=== PATIENT | male | born 1950 | race Caucasian/White ===

== ENCOUNTER 2017-01-29 18:19 | Inpatient (IN) | payer MEDICARE, OTHER ==
[~2017-01-29] VITALS: Ht 175.3 cm; Wt 77.1 kg
[2017-01-29] MEDS ORDERED: ACETAMINOPHEN 325 MG TABLET PO PRN (19:30)
[2017-01-29] MEDS ORDERED: MAG HYDROX/AL HYDROX/SIMETH 30 ML UDC PO PRN (19:30)
[2017-01-29] MEDS ORDERED: MAGNESIUM HYDROXIDE 30 ML UDC PO PRN (19:30)
[2017-01-29] MEDS ORDERED: LITH600C PO (19:52)
[2017-01-29] MEDS ORDERED: PALI6TAB PO (19:52)
[2017-01-29] MEDS ORDERED: OLAN20TA3 PO (19:52)
[2017-01-29] MEDS ORDERED: FLUT1DIS INH (19:52)
[2017-01-29] MEDS ORDERED: RANI150T8 PO (19:52)
[2017-01-29 20:00] VITALS: BP 105/60
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
[2017-01-30 07:17] LABS: BASOPHILS % (AUTO) 0.2 % (0.0-2.0); HEMATOCRIT 44 % (39-51); HEMOGLOBIN 15.1 g/dL (13.5-17.5); LYMPHOCYTES # (AUTO) 1.3 /CMM (0.8-4.8); MEAN CORPUSCULAR HEMOGLOBIN 32 PG (26.0-33.0); MEAN CORPUSCULAR HGB CONC 35 g/dl (31.0-36.0); MEAN CORPUSCULAR VOLUME 94 fL (80-96); MONOCYTES # (AUTO) 0.4 /CMM (0.1-1.30); MONOCYTES % (AUTO) 6.3 % (2.0-12.0); NEUTROPHILS % (AUTO) 74.5 % (43.0-81.0); PLATELET COUNT (AUTO) 236 /CMM (150-450); RDW COEFFICIENT OF VARIATION 13.1 (11.5-15.0); RED BLOOD CELL COUNT(AUTO) 4.66 MIL/uL (4.5-6.0); WHITE BLOOD COUNT (AUTO) 6.7 K/uL (4.3-11.0)
[2017-01-30 07:43] LABS: ALBUMIN 3.6 g/dL (3.4-5.0); BILIRUBIN,TOTAL 0.6 mg/dL (0.2-1.0); CALCIUM, SERUM 8.8 mg/dL (8.5-10.1); CREATININE 0.7 mg/dL (0.6-1.3); POTASSIUM 3.9 mmol/L (3.5-5.1); TOTAL PROTEIN, SERUM 6.9 g/dL (6.4-8.2)
[2017-01-30 08:00] VITALS: BP 130/76
[2017-01-30] MEDS: FLUTICASONE/VILANTEROL 1 EACH BLST.W.DEV IH SCH (09:09)
[2017-01-30] MEDS: FAMOTIDINE (20 MG) 20 MG TABLET PO SCH (09:10)
[2017-01-30] MEDS: LITHIUM CARBONATE (300 MG CAP) 300 MG CAPSULE PO SCH ×2 (12:21→21:22)
[2017-01-30] MEDS: OLANZAPINE 5 MG TABLET PO SCH ×2 (12:21→16:34)
[2017-01-30 15:39] VITALS: BP 112/68
[2017-01-30] MEDS: LORAZEPAM 0.5 MG TABLET PO PRN (16:34)
[2017-01-30 20:15] VITALS: BP 112/67
[2017-01-30] MEDS: risperiDONE 1 MG TABLET PO SCH (21:22)
[2017-01-31] MEDS: LORAZEPAM 0.5 MG TABLET PO PRN ×2 (05:48→13:42)
[2017-01-31 08:10] VITALS: BP 134/66
[2017-01-31] MEDS: risperiDONE 1 MG TABLET PO SCH ×2 (08:10→21:22)
[2017-01-31] MEDS: LITHIUM CARBONATE (300 MG CAP) 300 MG CAPSULE PO SCH ×2 (08:11→21:22)
[2017-01-31] MEDS: FAMOTIDINE (20 MG) 20 MG TABLET PO SCH (08:11)
[2017-01-31] MEDS: OLANZAPINE 5 MG TABLET PO SCH ×2 (08:11→16:00)
[2017-01-31] MEDS: FLUTICASONE/VILANTEROL 1 EACH BLST.W.DEV IH SCH (08:11)
[2017-01-31] MEDS: NICOTINE PATCH (14MG) 14 MG PATCH.TD24 TD SCH (13:25)
--- NOTE | 2017-01-31 13:42 | NUR ---
[id number]: GAVE ATIVAN 0.5 MG PO DUE TO SEVERE ANXIETY UPON PT REQUEST AND WILL CONTINUE TO MONITOR FOR EFFECTIVENESS OF MEDICATION
[2017-01-31 16:00] VITALS: BP 127/79
--- NOTE | 2017-01-31 19:30 | NUR ---
GPS RN NOTE, RECEIVED PATIENT AWAKE AND IN BED NO S/S OR COMPLAINTS OF PAIN AT THIS TIME. PATIENT IS DISPLAYING NO S/S OF APPARENT DISTRESS AT THIS TIME. PATIENT BREATHING IS UNLABORED WITH EQUAL RISE AND FALL OF THE CHEST. PATIENT IS ALERT AND ORIENTED X 3 ON ROOM AIR WITH A SPOO2 98 %. PATIENT CALM COOPERATIVE, ISOLATIVE, DISORGANIZED, AND NEEDS REORIENTATION. PATIENT DENIES SUICIDE IDEATIONS AND HOMICIDAL IDEATIONS AT THIS TIME. PATIENT ASSISTED WITH TURNING AND REPOSITIONING Q2HR AND PRN FOR COMFORT AND CIRCULATION. PATIENT HAS NO NEEDS AT THIS TIME. PATIENT EDUCATED ON THE USE OF THE CALL GARZA. PATIENT BED SIDE RAILS UP X 2 FOR SAFETY. PATIENT BED IS LOCKED AND LOW WILL CONTINUE TO MONITOR AND MAINTAIN SAFETY Q15 MIN WITH THE HELP OF STAFF.
[2017-01-31 19:56] VITALS: BP 109/63
[2017-02-01] MEDS: LORAZEPAM 0.5 MG TABLET PO PRN ×3 (02:03→14:22)
--- NOTE | 2017-02-01 02:03 | NUR ---
GPS RN NOTE, PATIENT HAS A COMPLAINT OF FEELING ANXIOUS ANIS REQUESTING ATIVAN AT THIS TIME. PATIENT VITAL SIGNS ARE STABLE. GAVE ATIVAN 0.5MG PO Q6HR PRN ORDERED. WILL REASSESS FOR ANXIETY AND I WILL CONTINUE TO MONITOR THIS PATIENT.
[2017-02-01 08:18] VITALS: BP 120/67
[2017-02-01] MEDS: OLANZAPINE 5 MG TABLET PO SCH ×2 (08:29→16:45)
[2017-02-01] MEDS: LITHIUM CARBONATE (300 MG CAP) 300 MG CAPSULE PO SCH ×2 (08:29→21:18)
[2017-02-01] MEDS: NICOTINE PATCH (14MG) 14 MG PATCH.TD24 TD SCH (08:29)
[2017-02-01] MEDS: FAMOTIDINE (20 MG) 20 MG TABLET PO SCH (08:29)
[2017-02-01] MEDS: FLUTICASONE/VILANTEROL 1 EACH BLST.W.DEV IH SCH (08:31)
[2017-02-01] MEDS: risperiDONE 1 MG TABLET PO SCH ×2 (08:33→21:18)
--- NOTE | 2017-02-01 14:51 | NUR ---
Initial Discharge Note: Patient resides at [place] [id number]; and wants to return to the residential facility upon discharge. SW will follow up. SW will help form a safe and proper discharge.
[2017-02-01 16:14] VITALS: BP 114/97
[2017-02-01 19:36] VITALS: BP 107/68
[2017-02-02] MEDS: TEMAZEPAM 7.5 MG CAPSULE PO PRN (02:00)
--- NOTE | 2017-02-02 02:02 | NUR ---
GPS/RN-NOTES PATIENT REQUESTING FOR SLEEPING PILL. RESTORIL 7.5MG P.O GIVEN PRN ORDER. WILL CONT. MONITORING FOR SAFETY.
[2017-02-02 08:00] VITALS: BP 115/54
[2017-02-02] MEDS: OLANZAPINE 5 MG TABLET PO SCH ×2 (08:25→16:03)
[2017-02-02] MEDS: FAMOTIDINE (20 MG) 20 MG TABLET PO SCH (08:25)
[2017-02-02] MEDS: LITHIUM CARBONATE (300 MG CAP) 300 MG CAPSULE PO SCH ×2 (08:26→21:00)
[2017-02-02] MEDS: risperiDONE 1 MG TABLET PO SCH ×2 (08:26→23:00)
[2017-02-02] MEDS: NICOTINE PATCH (14MG) 14 MG PATCH.TD24 TD SCH (08:26)
[2017-02-02] MEDS: FLUTICASONE/VILANTEROL 1 EACH BLST.W.DEV IH SCH (08:27)
--- NOTE | 2017-02-02 10:56 | NUR ---
Discharge Planning: STEPHANY spoke with Amelie from patient's board and care, [place], [address] [place] [address]; . Amelie stated that a phone interview would need to be conducted with patient prior to his return. STEPHANY stated that she will follow up with MD to determine a tentative discharge date.
[2017-02-02] MEDS: LORAZEPAM 0.5 MG TABLET PO PRN (13:06)
--- NOTE | 2017-02-02 13:06 | NUR ---
RN NOTES: PATIENT STATES FEELING A LITTLE ANXIOUS. PATIENT PROVIDED WITH CALM ENVIRONMENT IN ROOM, ENCOURAGED TO EXPRESS FEELINGS. HE DENIES SI/HI. ATIVAN ADMINISTERED. WILL CONTINUE TO MONITOR
--- NOTE | 2017-02-02 14:06 | NUR ---
RN NOTES: PATIENT RESTING IN BED. FACIAL EXPRESSIONS AND BODY EXPRESSIONS INDICATE CALMNESS. NONLABORED BREATHING NOTED. PATIENT ENCOURAGED TO EXPRESS FEELINGS AND THOUGHTS. WILL CONTINUE TO MONITOR PATIENT
[2017-02-02 15:49] VITALS: BP 96/56
[2017-02-02 20:28] VITALS: BP 101/56
[2017-02-03] MEDS: risperiDONE 1 MG TABLET PO SCH ×2 (08:14→21:52)
[2017-02-03] MEDS: NICOTINE PATCH (14MG) 14 MG PATCH.TD24 TD SCH (08:14)
[2017-02-03] MEDS: FAMOTIDINE (20 MG) 20 MG TABLET PO SCH (08:14)
[2017-02-03] MEDS: LITHIUM CARBONATE (300 MG CAP) 300 MG CAPSULE PO SCH ×2 (08:14→21:52)
[2017-02-03] MEDS: OLANZAPINE 5 MG TABLET PO SCH ×2 (08:14→17:50)
[2017-02-03] MEDS: FLUTICASONE/VILANTEROL 1 EACH BLST.W.DEV IH SCH (08:15)
[2017-02-03 09:08] VITALS: BP 115/73
[2017-02-03] MEDS: LORAZEPAM 0.5 MG TABLET PO PRN (09:18)
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
--- NOTE | 2017-02-03 14:37 | NUR ---
Discharge Planning: STEPHANY called and spoke with Amelie from [facility], [place], [address] [place] [phone]; . Amelie stated that she is available at 2pm tomorrow to conduct a phone interview with patient. Amelie stated that she will also provide pharmacy information at that time.
[2017-02-03 15:57] VITALS: BP 109/71
--- NOTE | 2017-02-03 18:54 | NUR ---
Dr. Carl gave an order for pt. on 1:1 for high fall risk and for assistance.
[2017-02-03 20:00] VITALS: BP 124/65
[2017-02-03] MEDS: TEMAZEPAM 7.5 MG CAPSULE PO PRN (21:52)
[2017-02-04 08:00] VITALS: BP 114/79
[2017-02-04] MEDS: NICOTINE PATCH (14MG) 14 MG PATCH.TD24 TD SCH (08:47)
[2017-02-04] MEDS: OLANZAPINE 5 MG TABLET PO SCH ×2 (08:47→17:03)
[2017-02-04] MEDS: risperiDONE 1 MG TABLET PO SCH ×2 (08:47→21:45)
[2017-02-04] MEDS: LITHIUM CARBONATE (300 MG CAP) 300 MG CAPSULE PO SCH ×2 (08:47→21:45)
[2017-02-04] MEDS: FLUTICASONE/VILANTEROL 1 EACH BLST.W.DEV IH SCH (08:47)
[2017-02-04] MEDS: FAMOTIDINE (20 MG) 20 MG TABLET PO SCH (08:48)
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
--- NOTE | 2017-02-04 15:48 | NUR ---
Discharge Planning: STEPHANY helped facilitate a phone interview between patient and Amelie, information technology administrator from [facility], [place], [address] [place] [address]; . Amelie informed STEPHANY that it seemed patient had made a lot of progress and showed "growth and insight." Amelie stated that the [facility] will be able to take him back next week. STEPHANY informed Amelie that patient will be discharged on Tuesday. STEPHANY then called Madiha [phone], hospital liaison from [facility] and scheduled transportation for patient on Tuesday. STEPHANY to follow up and confirm on Tuesday.
[2017-02-04 16:00] VITALS: BP 110/63
[2017-02-04 20:00] VITALS: BP 121/89
[2017-02-04] MEDS: TEMAZEPAM 7.5 MG CAPSULE PO PRN (21:45)
[2017-02-05] MEDS: OLANZAPINE 5 MG TABLET PO SCH ×2 (08:00→16:14)
[2017-02-05] MEDS: LITHIUM CARBONATE (300 MG CAP) 300 MG CAPSULE PO SCH ×2 (08:00→20:28)
[2017-02-05] MEDS: NICOTINE PATCH (14MG) 14 MG PATCH.TD24 TD SCH (08:00)
[2017-02-05] MEDS: FAMOTIDINE (20 MG) 20 MG TABLET PO SCH (08:00)
[2017-02-05] MEDS: FLUTICASONE/VILANTEROL 1 EACH BLST.W.DEV IH SCH (08:00)
[2017-02-05] MEDS: risperiDONE 1 MG TABLET PO SCH ×2 (08:01→20:28)
[2017-02-05 08:04] VITALS: BP 112/72
[2017-02-05 15:33] VITALS: BP 128/76
[2017-02-05 20:00] VITALS: BP 110/61
[2017-02-06 08:00] VITALS: BP 125/64
[2017-02-06] MEDS: FLUTICASONE/VILANTEROL 1 EACH BLST.W.DEV IH SCH (09:28)
[2017-02-06] MEDS: FAMOTIDINE (20 MG) 20 MG TABLET PO SCH (09:31)
[2017-02-06] MEDS: LITHIUM CARBONATE (300 MG CAP) 300 MG CAPSULE PO SCH ×2 (09:31→21:43)
[2017-02-06] MEDS: risperiDONE 1 MG TABLET PO SCH ×2 (09:31→21:43)
[2017-02-06] MEDS: OLANZAPINE 5 MG TABLET PO SCH ×2 (09:31→17:01)
[2017-02-06] MEDS: NICOTINE PATCH (14MG) 14 MG PATCH.TD24 TD SCH (09:31)
[2017-02-06 15:52] VITALS: BP 117/71
[2017-02-06 19:59] VITALS: BP 110/63
[2017-02-07] MEDS: LORAZEPAM 0.5 MG TABLET PO PRN (06:35)
--- NOTE | 2017-02-07 06:35 | NUR ---
GPS RN NOTE, PATIENT HAS A COMPLAINT OF FEELING ANXIOUS AND IS REQUESTING ATIVAN AT THIS TIME. PATIENT VITAL SIGNS ARE STABLE. GAVE ATIVAN 0.5MG PO Q6HR PRN ORDERED. WILL REASSESS FOR ANXIETY AND I WILL CONTINUE TO MONITOR THIS PATIENT.
[2017-02-07 08:00] VITALS: BP 116/64
[2017-02-07] MEDS: FAMOTIDINE (20 MG) 20 MG TABLET PO SCH (08:21)
[2017-02-07] MEDS: LITHIUM CARBONATE (300 MG CAP) 300 MG CAPSULE PO SCH ×2 (08:21→21:11)
[2017-02-07] MEDS: risperiDONE 1 MG TABLET PO SCH ×2 (08:21→21:11)
[2017-02-07] MEDS: OLANZAPINE 5 MG TABLET PO SCH ×2 (08:21→17:04)
[2017-02-07] MEDS: NICOTINE PATCH (14MG) 14 MG PATCH.TD24 TD SCH (08:21)
[2017-02-07] MEDS: FLUTICASONE/VILANTEROL 1 EACH BLST.W.DEV IH SCH (08:23)
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
--- NOTE | 2017-02-07 10:34 | NUR ---
Pharmacy Information: SW obtained information for pt's pharmacy through the [facility] and care: [facility] Phone number: [phone] Fax number: [phone] The information was obtained from Amelie, historic site administrator from [facility], [place], [address] [place] [address];
[2017-02-07] MEDS: BENZTROPINE MESYLATE (1 MG) 1 MG TABLET PO SCH ×2 (13:07→17:04)
[2017-02-07 15:56] VITALS: BP 113/74
[2017-02-07 20:39] VITALS: BP 114/68
[2017-02-08 08:00] VITALS: BP 109/64
[2017-02-08] MEDS: LITHIUM CARBONATE (300 MG CAP) 300 MG CAPSULE PO SCH ×2 (09:03→21:05)
[2017-02-08] MEDS: OLANZAPINE 5 MG TABLET PO SCH ×2 (09:03→17:49)
[2017-02-08] MEDS: BENZTROPINE MESYLATE (1 MG) 1 MG TABLET PO SCH ×2 (09:03→17:49)
[2017-02-08] MEDS: FAMOTIDINE (20 MG) 20 MG TABLET PO SCH (09:03)
[2017-02-08] MEDS: NICOTINE PATCH (14MG) 14 MG PATCH.TD24 TD SCH (09:03)
[2017-02-08] MEDS: risperiDONE 1 MG TABLET PO SCH ×2 (09:03→21:05)
[2017-02-08] MEDS: FLUTICASONE/VILANTEROL 1 EACH BLST.W.DEV IH SCH (09:04)
[2017-02-08 16:07] VITALS: BP 123/70
--- NOTE | 2017-02-08 16:57 | NUR ---
Discharge Planning: STEPHANY arranged transportation through [facility] liaison at [facility] for patient to return to [facility], [address] [place] [address], [place] [address];
[2017-02-08 19:43] VITALS: BP 110/59
[2017-02-08] MEDS: TEMAZEPAM 7.5 MG CAPSULE PO PRN (23:47)
--- NOTE | 2017-02-09 06:25 | NUR ---
GPS RN NOTES PT. COMFORTABLY RESTING AT THIS TIME, NO ACUTE DISTRESS NOTED, DENIES SI /HI AT THIS TIME PT. CALM COOPERATIVE,ENDORSE TO NEXT SHIFT FOR CONTINUTY OF CARE .
[2017-02-09 08:00] VITALS: BP 110/69
[2017-02-09] MEDS: NICOTINE PATCH (14MG) 14 MG PATCH.TD24 TD SCH (08:19)
[2017-02-09] MEDS: FAMOTIDINE (20 MG) 20 MG TABLET PO SCH (08:20)
[2017-02-09] MEDS: BENZTROPINE MESYLATE (1 MG) 1 MG TABLET PO SCH (08:20)
[2017-02-09] MEDS: LITHIUM CARBONATE (300 MG CAP) 300 MG CAPSULE PO SCH (08:20)
[2017-02-09] MEDS: OLANZAPINE 5 MG TABLET PO SCH (08:20)
[2017-02-09] MEDS: risperiDONE 1 MG TABLET PO SCH (08:20)
[2017-02-09] MEDS: FLUTICASONE/VILANTEROL 1 EACH BLST.W.DEV IH SCH (09:24)
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
== END 2017-02-09 11:45 | disposition home or self-care (01) | DRG 885 ==
LOC: GPS 18:51
PROVIDERS: ADMIT Psychiatry & Neurology Psychosomatic Medicine; ATTEND Nurse Practitioner Acute Care
DX: F25.0 Schizoaffective disorder, bipolar type (principal); F23 Brief psychotic disorder; J45.909 Unspecified asthma, uncomplicated; N40.0 Benign prostatic hyperplasia without lower urinary tract symptoms; Z87.891 Personal history of nicotine dependence; Z91.5 Personal history of self-harm; Z72.89 Other problems related to lifestyle
CPT/HCPCS: 36415; 80053-TC; 80061-TC; 85025-TC; 87081-TC; Z7610

== ENCOUNTER 2024-12-14 18:51 | Inpatient (IN) | payer MEDICARE, OTHER ==
[~2024-12-14] VITALS: Ht 175.3 cm; Wt 69.9 kg
[~2024-12-14 18:51] MED LIST: FLUT1DIS INH; RANI150T8 PO
[2024-12-14 19:34] LABS: PLATELET COUNT (AUTO) 294 K/uL (150-450); RED BLOOD CELL COUNT(AUTO) 4.04 MIL/uL (4.5-6.0); RED CELL DISTRIBUTION WIDTH 13.7 % (11.5-15.0); WHITE BLOOD COUNT (AUTO) 5.8 K/uL (4.3-11.0)
[2024-12-14 19:43] LABS: CALCIUM, SERUM 8.5 mg/dL (8.5-10.1); CREATININE 1.0 mg/dL (0.6-1.3); SODIUM SERUM 136.0 mmol/L (136-145); UREA NITROGEN, BLOOD 13.0 mg/dL (7-18)
[2024-12-14 19:45] LABS: APPEARANCE,URINE CLEAR (CLEAR); BLOOD, URINE Negative Ery/uL (NEGATIVE); LEUKOCYTE ESTERASE ,URINE Negative (NEGATIVE); NITRITE, URINE NEGATIVE (NEGATIVE); UGLUCOSE Negative (NEGATIVE)
[2024-12-14 19:51] LABS: ASPARTATE AMINOTRANSFERASE 20.0 U/L (15-37); TOTAL PROTEIN, SERUM 6.8 g/dL (6.4-8.2)
[2024-12-14 20:02] LABS: AMPHETAMINE, URINE NEGATIVE (NEGATIVE); BARBITURATE, URINE NEGATIVE (NEGATIVE); BENZODIAZEPINE, URINE NEGATIVE (NEGATIVE); CANNABINOID, URINE NEGATIVE (NEGATIVE); COCCAINE, URINE NEGATIVE (NEGATIVE); OPIATE, URINE NEGATIVE (NEGATIVE)
[2024-12-14] MEDS ORDERED: BISACODYL SUPP (10 MG) 10 MG/SUPP.RECT SUPP.RECT RC PRN (22:00)
[2024-12-14] MEDS: SENNOSIDES 8.6 MG TABLET PO SCH (22:00)
[2024-12-14] MEDS ORDERED: ACET-868 PO (23:17)
[2024-12-14] MEDS ORDERED: BENZ0.5T43 PO (23:17)
[2024-12-14] MEDS ORDERED: BISA10SU61 RC (23:18)
[2024-12-14] MEDS ORDERED: MULT-225 PO (23:18)
[2024-12-14] MEDS ORDERED: OLAN2.5T3 PO (23:19)
[2024-12-14] MEDS ORDERED: OLAN5TAB3 PO (23:20)
[2024-12-15] MEDS ORDERED: MAGNESIUM HYDROXIDE 30 ML UDC PO PRN
[2024-12-15] MEDS ORDERED: LORAZEPAM 1 MG TABLET PO PRN
[2024-12-15] MEDS ORDERED: TEMAZEPAM 7.5 MG CAPSULE PO PRN ×2
[2024-12-15] MEDS ORDERED: MAG HYDROX/AL HYDROX/SIMETH 30 ML UDC PO PRN
[2024-12-15] MEDS ORDERED: ACETAMINOPHEN 325 MG TABLET PO PRN
[2024-12-15 00:26] VITALS: BP 115/68; TEMP 97.8; O2SAT 98
[2024-12-15] MEDS: BLOOD SUGAR DIAGNOSTIC 1 EACH STRIP IN ONE (02:18)
[2024-12-15 08:00] VITALS: BP 114/50; TEMP 97.7; O2SAT 95
[2024-12-15] MEDS: PANTOPRAZOLE 40 MG TABLET.DR PO SCH (08:47)
[2024-12-15] MEDS: MULTIVITAMINS,THERAGRAN 1 UDTAB TABLET PO SCH (08:47)
[2024-12-15] MEDS: NICOTINE PATCH (21MG) 21 MG PATCH.TD24 TD SCH (08:48)
[2024-12-15] MEDS: ENOXAPARIN SODIUM 40 MG/0.4 ML DISP.SYRIN SQ SCH (08:54)
[2024-12-15] MEDS: QUETIAPINE FUMARATE 25 MG TABLET PO SCH (09:54)
[2024-12-15 20:16] VITALS: BP 121/59; TEMP 98; O2SAT 96
[2024-12-16] MEDS: LORAZEPAM 1 MG TABLET PO PRN (07:57)
[2024-12-16 08:15] VITALS: BP 122/64; TEMP 97.9; O2SAT 96
[2024-12-16] MEDS: HALOPERIDOL LACTATE INJ 5 MG/ML VIAL IM STA (10:16)
[2024-12-16] MEDS: LORAZEPAM INJ 2 MG/ML VIAL IM STA (10:17)
[2024-12-16 15:21] VITALS: BP 112/56; TEMP 97.8; O2SAT 98
[2024-12-16 20:39] VITALS: BP 100/56; TEMP 97.7; O2SAT 98
[2024-12-16 21:05] LABS: PLATELET COUNT (AUTO) 257 K/uL (150-450); RED BLOOD CELL COUNT(AUTO) 3.68 MIL/uL (4.5-6.0); RED CELL DISTRIBUTION WIDTH 13.6 % (11.5-15.0); WHITE BLOOD COUNT (AUTO) 5.2 K/uL (4.3-11.0)
[2024-12-16 21:10] LABS: CALCIUM, SERUM 8.1 mg/dL (8.5-10.1); CREATININE 0.9 mg/dL (0.6-1.3); SODIUM SERUM 127.0 mmol/L (136-145); UREA NITROGEN, BLOOD 14.0 mg/dL (7-18)
[2024-12-16 21:17] LABS: LDL 33.0 mg/dL (0-99)
[2024-12-17] MEDS: HALOPERIDOL LACTATE INJ 5 MG/ML VIAL IM STA (07:29)
[2024-12-17] MEDS: LORAZEPAM INJ 2 MG/ML VIAL IM STA (07:29)
[2024-12-17 07:41] LABS: CALCIUM, SERUM 8.8 mg/dL (8.5-10.1); CREATININE 0.9 mg/dL (0.6-1.3); SODIUM SERUM 133.0 mmol/L (136-145); UREA NITROGEN, BLOOD 14.0 mg/dL (7-18)
[2024-12-17 08:11] VITALS: BP 101/50; TEMP 97.8; O2SAT 99
[2024-12-17 15:37] VITALS: BP 111/60; TEMP 98; O2SAT 97
[2024-12-17 19:49] VITALS: BP 115/61; TEMP 98; O2SAT 98
[2024-12-17] MEDS: OLANZAPINE 5 MG TABLET PO SCH (20:11)
[2024-12-17] MEDS: TEMAZEPAM 7.5 MG CAPSULE PO PRN (22:15)
[2024-12-18] MEDS: LORAZEPAM 1 MG TABLET PO PRN (03:16)
[2024-12-18 16:04] VITALS: BP 103/54; TEMP 97.9; O2SAT 96
[2024-12-18 19:46] VITALS: BP 115/57; TEMP 97.7; O2SAT 98
[2024-12-19 08:00] VITALS: BP 160/96; TEMP 97.8; O2SAT 98
[2024-12-19] MEDS ORDERED: NA P133E RC (10:49)
[2024-12-19] MEDS ORDERED: SENN-291 PO (10:49)
[2024-12-19] MEDS ORDERED: BISA10SU11 RC (10:49)
[2024-12-19] MEDS ORDERED: MULT-213 PO (10:49)
[2024-12-19] MEDS ORDERED: ACET325T53 PO (10:49)
[2024-12-19 16:00] VITALS: BP 102/50; TEMP 98.2; O2SAT 98
[2024-12-19 19:55] VITALS: BP 107/50; TEMP 98.3; O2SAT 98
[2024-12-20 07:32] LABS: CALCIUM, SERUM 8.9 mg/dL (8.5-10.1); CREATININE 0.8 mg/dL (0.6-1.3); SODIUM SERUM 141.0 mmol/L (136-145); UREA NITROGEN, BLOOD 15.0 mg/dL (7-18)
[2024-12-20 08:00] VITALS: BP 113/50; TEMP 97.9; O2SAT 98
[2024-12-20] MEDS: DIVALPROEX SODIUM 125 MG TABLET.DR PO SCH (13:32)
[2024-12-20 16:07] VITALS: BP 116/83; TEMP 97.7; O2SAT 98
[2024-12-21 08:00] VITALS: BP 130/58; TEMP 97; O2SAT 99
[2024-12-21 16:00] VITALS: BP 134/73; TEMP 97.7; O2SAT 98
[2024-12-21 20:14] VITALS: BP 114/55; TEMP 97.8; O2SAT 96
[2024-12-22 08:00] VITALS: BP 111/53; TEMP 97.8; O2SAT 97
[2024-12-22] MEDS ORDERED: ACETAMINOPHEN 325 MG TABLET PO PRN (14:00)
[2024-12-22] MEDS ORDERED: NA PHOS,M-B/NA PHOS,DI-BA 1 EA ENEMA RC PRN (14:00)
[2024-12-22] MEDS ORDERED: BISACODYL SUPP (10 MG) 10 MG/SUPP.RECT SUPP.RECT RC PRN (14:00)
[2024-12-22 16:02] VITALS: BP 124/69; TEMP 97.8; O2SAT 96
[2024-12-22] MEDS: SENNOSIDES/DOCUSATE SODIUM 1 TAB TABLET PO SCH (21:16)
[2024-12-22 21:41] VITALS: BP 110/63; TEMP 97.8; O2SAT 98
[2024-12-23 08:00] VITALS: BP 107/54; TEMP 98.2; O2SAT 98
[2024-12-23] MEDS: MULTIVIT W/MINERALS 1 TAB TABLET PO SCH (08:07)
[2024-12-23 13:04] LABS: ASPARTATE AMINOTRANSFERASE 10.0 U/L (15-37); CALCIUM, SERUM 8.6 mg/dL (8.5-10.1); CREATININE 1.2 mg/dL (0.6-1.3); SODIUM SERUM 146.0 mmol/L (136-145); TOTAL PROTEIN, SERUM 7.6 g/dL (6.4-8.2); UREA NITROGEN, BLOOD 52.0 mg/dL (7-18); VALPROIC ACID 88.0 ug/mL (50-100)
[2024-12-23 16:00] VITALS: BP 117/56; TEMP 98.1; O2SAT 98
[2024-12-23 21:02] VITALS: BP 116/55; TEMP 98.1; O2SAT 97
[2024-12-24 08:00] VITALS: BP 110/51; TEMP 98.7; O2SAT 98
[2024-12-24 16:00] VITALS: BP 118/62; TEMP 98.2; O2SAT 98
[2024-12-24 19:59] VITALS: BP 110/52; TEMP 98.3; O2SAT 98
[2024-12-24] MEDS: OLANZAPINE 2.5 MG TABLET PO SCH (21:08)
[2024-12-25 08:00] VITALS: BP 131/58; TEMP 97.5; O2SAT 98
[2024-12-25 16:15] VITALS: BP 108/80; TEMP 97.7; O2SAT 97
[2024-12-25 20:02] VITALS: BP 134/69; TEMP 98.3; O2SAT 100
[2024-12-26 08:00] VITALS: BP 121/55; TEMP 97.7; O2SAT 97
[2024-12-26 09:00] VITALS: BP 121/55; TEMP 97.7
[2024-12-26 16:00] VITALS: BP 115/65; TEMP 97.8; O2SAT 97
[2024-12-26 16:16] VITALS: BP 115/65; TEMP 97.8; O2SAT 97
[2024-12-26 20:00] VITALS: BP 113/56; TEMP 97.8; O2SAT 100
[2024-12-26 20:07] VITALS: BP 113/56; TEMP 97.8; O2SAT 100
[2024-12-27 08:00] VITALS: BP 111/52; TEMP 97.7; O2SAT 98
[2024-12-27 16:00] VITALS: BP 105/61; TEMP 98.2; O2SAT 98
[2024-12-27 20:00] VITALS: BP 112/64; TEMP 98; O2SAT 98
[2024-12-27] MEDS: DIVALPROEX SODIUM 250 MG TABLET.DR PO SCH (21:13)
[2024-12-27] MEDS: OLANZAPINE 10 MG TABLET PO SCH (21:13)
[2024-12-28 08:00] VITALS: BP 117/63; TEMP 97.7; O2SAT 96
== END 2024-12-28 20:11 | DRG 885 ==
LOC: ER 18:55 → GPS 23:11
PROVIDERS: ADMIT Psychiatry & Neurology Psychiatry; ATTEND Registered Nurse Psychiatric/Mental Health
DX: F20.0 Paranoid schizophrenia (principal); E44.1 Mild protein-calorie malnutrition; E22.2 Syndrome of inappropriate secretion of antidiuretic hormone; D64.9 Anemia, unspecified; F41.9 Anxiety disorder, unspecified; E86.0 Dehydration; E88.09 Other disorders of plasma-protein metabolism, not elsewhere classified; I48.91 Unspecified atrial fibrillation; Z20.822 Contact with and (suspected) exposure to COVID-19; F29 Unspecified psychosis not due to a substance or known physiological condition; J44.9 Chronic obstructive pulmonary disease, unspecified; F17.210 Nicotine dependence, cigarettes, uncomplicated; Z68.22 Body mass index [BMI] 22.0-22.9, adult; F39 Unspecified mood [affective] disorder; T43.595A Adverse effect of other antipsychotics and neuroleptics, initial encounter; Y92.129 Unspecified place in nursing home as the place of occurrence of the external cause
CPT/HCPCS: 36415; 80048-TC; 80053-TC; 80061-TC; 80076-TC; 80164-TC; 82962-TC; 85025-TC; 87081-TC; 97116-TC; 97530-TC; J1200; J1630; J1650; J2060